=== PATIENT | female | born 2000 | race Caucasian/White ===

== ENCOUNTER 2018-05-02 10:58 | Emergency (ER) | payer OTHER ==
[2018-05-02 11:32] VITALS: BP 113/60; PULSE 75; TEMP 98.5; BMI 24.1
--- NOTE | 2018-05-02 11:48 | PDOC ---
History of Present Illness - General Chief Complaint: Back Pain Stated Complaint: LOW BACK PAIN Time Seen by Provider: 05/02/18 11:08 - History of Present Illness Initial Comments: 05/02/18 13:38 Chief complaint: Low back pain History of present illness: Patient was bending over this morning, sudden twinge in her low back, persistent pain and stiffness. No radiation of the pain to the legs. No distal numbness tingling pain or weakness. Patient does not play sports but spends a lot of time sitting in a chair. Review of systems: No recent fever/chills, URI symptoms, sore throat, cough, chest pain, shortness of breath, abdominal pain, nausea, vomiting, diarrhea, urinary tract symptoms including dysuria frequency urgency hesitancy or hematuria, no vaginal bleeding or discharge. Menses regular. No missed menses Past medical history: Recurrent mild back pain in the past, most recently approximately 2 weeks ago, which seemed to have resolved. On control pills. Otherwise no significant medical or surgical problems past her present. Social/family history reviewed and noncontributory Physical exam: Alert and oriented well-developed well-nourished no acute distress cheerful and cooperative. Ambulatory without difficulty Afebrile, vital signs normal HEENT clear Neck supple without bruit mass or nodes Chest clear CV regular without murmur rub or gallop benign abdomen benign LS spine: Mild loss of normal lumbar lordosis with paravertebral spasm. No point tenderness, deformity, or inflammatory changes. Straight leg raising negative. No distal sensory or motor deficits. DTRs intact and symmetric. Impression: Low back strain, recurrent, bilateral lumbosacral areas. No sign of radiculopathy Plan: Symptomatic treatment, heat, anti-inflammatory, muscle relaxant, and follow-up Back Specialist, consider physical therapy. Fully ambulatory and in no significant pain or other distress upon discharge with friend to follow-up as directed Past History - Past Medical History Allergies/Adverse Reactions: Allergies Allergy/AdvReac Type Severity Reaction Status Date / Time No Known Allergies Allergy Verified 05/02/18 11:07 Home Medications: Ambulatory Orders Cyclobenzaprine HCl [Flexeril -] 10 mg PO TID #15 tablet 05/02/18 Diclofenac Sodium [Voltaren -] 75 mg PO BID PRN #14 tablet. 05/02/18 Estradiol Cypionate [Depo-Estradiol] 5 mg IM ASDIR 05/02/18 Levothyroxine [Synthroid -] 50 mcg PO DAILY 05/02/18 COPD: No Thyroid Disease: Yes - Immunization History Immunization Up to Date: Yes - Suicide/Smoking/Psychosocial Hx Smoking History: Current some day smoker Have you smoked in the past 12 months: Yes Number of Cigarettes Smoked Daily: 0 Information on smoking cessation initiated: Yes 'Breaking Loose' booklet given: 05/02/18 Hx Alcohol Use: No Drug/Substance Use Hx: No Substance Use Type: None *Physical Exam - Vital Signs Last Vital Signs Temp Pulse Resp BP Pulse Ox 98.5 F 75 16 113/60 100 05/02/18 11:06 05/02/18 11:06 05/02/18 11:06 05/02/18 11:06 05/02/18 11:06 *DC/Admit/Observation/Transfer Diagnosis at time of Disposition: Low back strain Qualifiers: Encounter type: initial encounter Qualified Code(s): S39.012A - Strain of muscle, fascia and tendon of lower back, initial encounter - Discharge Dispostion Disposition: HOME Condition at time of disposition: Improved Decision to Admit order: No - Prescriptions Prescriptions: Cyclobenzaprine HCl [Flexeril -] 10 mg PO TID #15 tablet Diclofenac Sodium [Voltaren -] 75 mg PO BID PRN #14 tablet.dr LOPEZ Reason: Pain - Referrals Referrals: Surjit Plummer MD [Staff Physician] - 1 week - Patient Instructions Printed Discharge Instructions: Assess Your Smoking Habit, DI for Low Back Pain Additional Instructions: Medication as directed. Heating pad. Avoid sitting Gentle stretching exercises, consider physical therapy. See Back Specialist if no improvement one week. - Post Discharge Activity
[2018-05-02 12:18] LABS: URINE APPEARANCE Clear; URINE BILIRUBIN Negative (NEGATIVE); URINE COLOR Amber; URINE GLUCOSE (UA) Negative (NEGATIVE); URINE KETONE Negative (NEGATIVE); URINE LEUK ESTERASE Negative (NEGATIVE); URINE NITRITE Negative (NEGATIVE); URINE PROTEIN Negative (NEGATIVE); URINE UROBILINOGEN 0.2 (0.2-1.0)
[2018-05-02 12:25] LABS: HCG,QUALITATIVE URINE Negative
[2018-05-02] MEDS ORDERED: hydrOXYzine PAMOATE 25 MG CAPSULE (FP) PO ONE (12:31)
[2018-05-02] MEDS ORDERED: KETOROLAC TROMETHAMINE 60 MG/2 ML VIAL IM ONE (12:31)
[2018-05-02 12:32] LABS: URINE RBC 0-2 /hpf (0-3)
[2018-05-02 12:33] LABS: EPI CELLS 1+ /HPF
[2018-05-02] MEDS ORDERED: hydrOXYzine HCL 25 MG TABLET (FP) PO ONE (12:41)
[2018-05-02] MEDS ORDERED: KETOROLAC TROMETHAMINE 60 MG/2 ML VIAL ONE (12:41)
== END 2018-05-02 12:52 | disposition home or self-care (01) ==
LOC: FER 10:58
PROC: 3E0233Z Introduction of Anti-inflammatory into Muscle, Percutaneous Approach (ICD-10-PCS; principal; 2018-05-02)
DX: S39.012A Strain of muscle, fascia and tendon of lower back, initial encounter (principal); X58.XXXA Exposure to other specified factors, initial encounter; Y93.89 Activity, other specified; Y92.9 Unspecified place or not applicable
CPT/HCPCS: 81003; 81015; 84703; 96372; 99282-25